=== PATIENT | female | born 1980 | race Caucasian/White ===

== ENCOUNTER 2016-11-04 18:46 | Emergency (ER) | payer BC ==
[~2016-11-04] VITALS: Ht 172.7 cm; Wt 99.8 kg
[~2016-11-04 18:46] MED LIST: NAPROSYN500 MG PO; TYLENOL WITH CO1 TAB PO
[2016-11-04] MEDS ORDERED: WELLBUTRIN XL150 MG PO (19:10)
[2016-11-04] MEDS ORDERED: CELEXA40 MG PO (19:12)
[2016-11-04] MEDS ORDERED: REQUIP0.5 MG PO (19:12)
[2016-11-04] MEDS ORDERED: ATOMOXETINE HCL40 MG PO (19:17)
== END 2016-11-04 19:48 | disposition short-term general hospital (02) ==
LOC: ER 18:46
DX: R13.10 Dysphagia, unspecified (principal); Z79.899 Other long term (current) drug therapy; Z91.018 Allergy to other foods